=== PATIENT | male | born 1965 | race Two or more races ===

== ENCOUNTER 2019-12-14 16:14 | Inpatient (IN) | payer OTHER ==
[2019-12-14 17:10] VITALS: BMI 18.4
--- NOTE | 2019-12-14 17:19 | BHS.RME ---
Substance Use & Tx History - Substance Use History Alcohol Substance amount: 4-6 pints of whiskey Frequency of use: Daily Substance route: Oral Date of Last Use: 12/14/19 (this morning) Nicotine Substance amount: 20 cigarettes Frequency of use: Daily Substance route: Smoking Date of Last Use: 12/14/19 (the afternoon) - Last Treatment Date of last treatment: 06/2019 Treatment type: Medical Where was last treatment: Detox (New to [facility]; seen at [facility] (completed 4-5 day detox for alc) in June) Physical/Psych/Mental Status - Behavior General Behavior: Increased activity (restlessness, agitation) Eye Contact: Normal - Cooperativeness Cooperativeness: Cooperative - Thinking Thought Processes: Logical, Goal Directed Thought content: Future oriented - Physical Health Problems Is patient presently having any pain?: No Does patient presently have any injuries (include location): No Does patient currently have a fever: No Is patient : No CIWA Nausea/Vomitin-Mild Nausea/No Vomiting Muscle Tremors: 2 Anxiety: 3 Agitation: 2 Paroxysmal Sweats: 4-Forehead w/Sweat Beads Orientation: 0-Oriented Tacttile Disturbances: 0-None Auditory Disturbances: 0-None Visual Disturbances: 0-None Headache: 0-None Present CIWA-Ar Total Score: 12 Treatment Recommendation - Level of Care Level of Care: Acute Medical
--- NOTE | 2019-12-14 17:26 | HP ---
CIWA Score Nausea/Vomitin-Mild Nausea/No Vomiting Muscle Tremors: 2 Anxiety: 3 Agitation: 2 Paroxysmal Sweats: 4-Forehead w/Sweat Beads Orientation: 0-Oriented Tacttile Disturbances: 0-None Auditory Disturbances: 0-None Visual Disturbances: 0-None Headache: 0-None Present CIWA-Ar Total Score: 12 - Admission Criteria OASAS Guidelines: Admission for Medically Managed Detox: Requires at least one of the followin. CIWA greater than 12 2. Seizures within the past 24 hours 3. Delirium tremens within the past 24 hours 4. Hallucinations within the past 24 hours 5. Acute intervention needed for co occurring medical disorder 6. Acute intervention needed for co occurring psychiatric disorder 7. Severe withdrawal that cannot be handled at a lower level of care (continued vomiting, continued diarrhea, abnormal vital signs) requiring intravenous medication and/or fluids 8. Patient presents the following: CIWA greater than 12 Admission Criteria Met: Admission criteria met Admitting History and Physical - Admission Chief Complaint: Pt is a 54 yo M presenting for detox from alcohol; "starting to feel my withdrawal symptoms...I had to drink a little stop it before coming." History of Present Illness: Pt is a 54 yo M presenting for detox from alcohol; "starting to feel my withdrawal symptoms...I had to drink a little stop it before coming." Pt reports that he is new to [facility] but underwent alcohol detox in June at the [facility]. Pt reports 2 months of sobriety following detox in June after which he relapsed. Pt reports "the boredom with the stay at home order" was a trigger to start drinking again. Pt also reports he is in a Suboxone program @ [facility]. He was also prescribed valium for anxiety; last took valium 2 weeks ago. Pt denies any heroin, cocaine, or non-prescribed benzo use. He reports he has been feeling his withdrawal symptoms quicker these past several days. Pt meets criteria given extend of use and current intoxication. PMH - COPD (albuterol prn), peripheral neuropathy PSH - none Psych - none Soc/Domiciled -living alone in [facility] [place] Legal - none - Substance Use History Alcohol Substance amount: 4-6 pints of whiskey Frequency of use: Daily Substance route: Oral Date of Last Use: 12/14/19 (this morning) Nicotine Substance amount: 20 cigarettes Frequency of use: Daily Substance route: Smoking Date of Last Use: 12/14/19 (the afternoon) - Last Treatment Date of last treatment: 06/2019 Treatment type: Medical Where was last treatment: Detox (New to [facility]; seen at [facility] (completed 4-5 day detox for alc) in June) History Source: Patient Limitations to Obtaining History: No Limitations - Past Medical History Pulmonary: Yes: COPD Admission ROS [facility] - Ebola screening Have you traveled outside of the country in the last 21 days: No Have you been sick,other than usual withdrawal symptoms: No Do you have a fever: No - Review of Systems Constitutional: Chills, Diaphoresis, Unintentional Wgt. Loss (25 lb weight loss over the last several months because of alcohol use) EENT: reports: Blurred Vision (nearsighted with glasses) Respiratory: reports: No Symptoms reported Cardiac: reports: No Symptoms Reported GI: reports: Nausea (very mild) : reports: No Symptoms Reported Musculoskeletal: reports: No Symptoms Reported Integumentary: reports: No Symptoms Reported Neuro: reports: Tingling (chronic neuropathy in toes of b/l feet; was told likely 2/2 to chronic alcohol use) Endocrine: reports: No Symptoms Reported Hematology: reports: No Symptoms Reported Psychiatric: reports: Orientated x3, Agitated (mild), Anxious (mild) Patient History - Smoking Cessation Smoking history: Current every day smoker Have you smoked in the past 12 months: Yes Aproximately how many cigarettes per day: 20 Initiated information on smoking cessation: Yes 'Breaking Loose' booklet given: 12/14/19 Admission Physical Exam [facility] - Vital Signs Vital Signs: Vital Signs - 24 hr 12/14/19 17:07 Temperature 97.6 F Pulse Rate 76 Respiratory 18 Rate Blood Pressure 113/66 - Physical General Appearance: Yes: No Apparent Distress, Nourished, Appropriately Dressed, Tremorous (mild), Anxious (mild) HEENTM: Yes: EOMI, Hearing grossly Normal, Normocephalic, Normal Voice Respiratory: Yes: Lungs Clear, Normal Breath Sounds, No Respiratory Distress, No Accessory Muscle Use Neck: Yes: Supple, Trachea in good position Breast: Yes: Breast Exam Deferred Cardiology: Yes: Regular Rhythm, Regular Rate Abdominal: Yes: Normal Bowel Sounds, Non Tender, Flat, Soft Genitourinary: Yes: Other (deferred) Back: Yes: Normal Inspection Musculoskeletal: Yes: full range of Motion, Gait Steady Extremities: Yes: Normal Capillary Refill, Normal Inspection, Normal Range of Motion, Non-Tender, Tremors (felt not seen), Other (scab on howard of R leg from bumping his leg 2 weeks ago; no tenderness to palpation of bone and surrounding tissue) Neurological: Yes: Fully Oriented, Alert, Motor Strength 5/5, Normal Mood/Affect Integumentary: Yes: Normal Color, Dry, Warm - Diagnostic (1) Alcohol dependence Current Visit: Yes Status: Acute Qualifiers: Substance use status: in withdrawal Complication of substance-induced condition: uncomplicated Qualified Code(s): F10.230 - Alcohol dependence with withdrawal, uncomplicated (2) Nicotine dependence Current Visit: Yes Status: Acute Qualifiers: Nicotine product type: cigarettes Substance use status: uncomplicated Qualified Code(s): F17.210 - Nicotine dependence, cigarettes, uncomplicated (3) COPD (chronic obstructive pulmonary disease) Current Visit: Yes Status: Acute Qualifiers: COPD type: unspecified COPD Qualified Code(s): J44.9 - Chronic obstructive pulmonary disease, unspecified Cleared for Admission S - Detox or Rehab [facility] Level of Care: Medically Managed Detox Regimen/Protocol: Librium Breathalyzer - Breathalyzer Breathalyzer: 0.181 Urine Drug Screen - Test Device Lot number: [id number] Expiration date: 06/15/21 - Control Is test valid?: Yes - Results Drug screen NEGATIVE: No Urine drug screen results: BZO-Benzodiazepines, BUP-Suboxone Inpatient Rehab Admission - Rehab Decision to Admit Inpatient rehab admission?: No
[2019-12-14] MEDS ORDERED: MENTHOL/PHENOL 1 EACH UD MM PRN (17:52)
[2019-12-14] MEDS ORDERED: chlordiazePOXIDE HCL 25 MG CAPSULE PO PRN (17:52)
[2019-12-14] MEDS ORDERED: IBUPROFEN 400 MG TABLET (FP) PO PRN (17:52)
[2019-12-14] MEDS ORDERED: ONDANSETRON *ODT* 4 MG TABLET SL PRN (17:52)
[2019-12-14] MEDS ORDERED: MAGNESIUM HYDROX 2400MG/30ML ORAL SUSPENSION 30 ML CUP PO PRN (17:52)
[2019-12-14] MEDS ORDERED: MAGNESIUM CITRATE 300 ML BOTTLE PO PRN (17:52)
[2019-12-14] MEDS ORDERED: ACETAMINOPHEN 325 MG TABLET (FP) PO PRN ×2 (17:52)
[2019-12-14] MEDS ORDERED: BISMUTH SUBSALICYLATE 524 MG/30 ML UD PO PRN (17:52)
[2019-12-14] MEDS ORDERED: NICOTINE POLACRILEX 2 MG GUM BUC PRN (17:52)
[2019-12-14] MEDS ORDERED: MAG HYDROX/AL HYDROX/SIMETH 30 ML UNIT-DOSE CUP PO PRN (17:52)
--- OUTSIDE RECORDS SUMMARY | 2019-12-14 18:44 | XMS ---
:1965 Author Organization [facility] Name Relationship Address Phone UE Unavailable Unavailable Unavailable BRENNON SMITH SELF / SAME PATIENT [address] [place] [address] [place] [address] Re-disclosure Warning The records that you are about to access may contain information from federally- assisted alcohol or drug abuse programs. If such information is present, then the following federally mandated warning applies: This information has been disclosed to you from records protected by federal confidentiality rules (42 CFR part 2). The federal rules prohibit you from making any further disclosure of this information unless further disclosure is expressly permitted by the written consent of the person to whom it pertains or as otherwise permitted by 42 CFR part 2. A general authorization for the release of medical or other information is NOT sufficient for this purpose. The Federal rules restrict any use of the information to criminally investigate or prosecute any alcohol or drug abuse patient.The records that you are about to access may contain highly sensitive health information, the redisclosure of which is protected by Article 27-F of the [facility] Public Health law. If you continue you may haveaccess to information: Regarding HIV / AIDS; Provided by facilities licensed or operated by the [facility] Office of Mental Health; or Provided by the [facility] Office for People With Developmental Disabilities. If such information is present, then the following [facility] mandated warning applies: This information has been disclosed to you from confidential records which are protected by state law. State law prohibits you from making any further disclosure of this information without the specific written consent of the person to whom it pertains, or as otherwise permitted by law. Any unauthorized further disclosure in violation of state law may result in a fine or prison sentence or both. A general authorization for the release of medical or other information is NOT sufficient authorization for further disclosure. Insurance Providers Payer name Policy type Policy ID Covered Covered constitution party's Policy P kishor / Coverage constitution party ID relationship to [facility] ormation type pate HEALTH [id number]
[2019-12-14] MEDS: chlordiazePOXIDE HCL 25 MG CAPSULE PO SCH ×2 (19:05→22:25)
--- NOTE | 2019-12-14 19:20 | PN ---
Teaching Attending Note Name of Resident: Bhupendra Naik ATTENDING PHYSICIAN STATEMENT I saw and evaluated the patient. I reviewed the resident's note and discussed the case with the resident. I agree with the resident's findings and plan as documented. SUBJECTIVE: 54 y.o. male requesting detox from alcohol use , reports 4-6 pints of whiskey/ day PMHX : COPD OBJECTIVE: wnwd , intoxicated Vital Signs - 24 hr 12/14/19 17:07 Temperature 97.6 F Pulse Rate 76 Respiratory 18 Rate Blood Pressure 113/66 ASSESSMENT AND PLAN: AUD - librium detox
[2019-12-14] MEDS: hydrOXYzine PAMOATE 25 MG CAPSULE (FP) PO SCH ×2 (20:43→22:26)
[2019-12-14] MEDS: PRENATAL VITAMINS W/ FOLIC ACID TABLET (FP) PO SCH (20:45)
[2019-12-14] MEDS: NICOTINE 21 MG/24 HOURS TOPICAL PATCH TD SCH (20:45)
[2019-12-14] MEDS ORDERED: chlordiazePOXIDE HCL 25 MG CAPSULE ONE (22:01)
[2019-12-14] MEDS: THIAMINE HCL 100 MG TABLET (FP) PO SCH (22:26)
[2019-12-14] MEDS: MELATONIN 5 MG TABLETS PO SCH (22:26)
[2019-12-15] MEDS: chlordiazePOXIDE HCL 25 MG CAPSULE PO SCH ×4 (05:41→22:29)
[2019-12-15] MEDS: hydrOXYzine PAMOATE 25 MG CAPSULE (FP) PO SCH ×5 (05:42→22:29)
[2019-12-15] MEDS ORDERED: BUPRENORPHINE/NALOXONE 8 MG/2 MG FILM PACKET SL ONE (08:48)
--- NOTE | 2019-12-15 08:48 | EKG ---
Test Reason : Blood Pressure : / mmHG Vent. Rate : 058 BPM Atrial Rate : 058 BPM P-R Int : 144 ms QRS Dur : 106 ms QT Int : 428 ms P-R-T Axes : 083 023 017 degrees QTc Int : 420 ms SINUS BRADYCARDIA SEPTAL INFARCT , AGE UNDETERMINED ABNORMAL ECG NO PREVIOUS ECGS AVAILABLE Confirmed by Valdez Beth MD ([id number]) on 12/15/2019 8:47:06 AM Referred By: Confirmed By:Valdez Beth MD
[2019-12-15] MEDS: NICOTINE 21 MG/24 HOURS TOPICAL PATCH TD SCH (10:27)
[2019-12-15] MEDS: PRENATAL VITAMINS W/ FOLIC ACID TABLET (FP) PO SCH (10:27)
[2019-12-15] MEDS: METHOCARBAMOL 500 MG TABLET PO PRN ×2 (10:28→22:28)
[2019-12-15 10:49] LABS: HEMATOCRIT 37.3 % (35.4-49); HEMOGLOBIN 12.4 GM/dL (11.7-16.9); MCH 35.9 pg (25.7-33.7); MCHC 33.3 g/dl (32.0-35.9); MEAN CELL VOLUME 107.8 fl (80-96); PLATELET COUNT 104 K/MM3 (134-434); RBC 3.46 M/mm3 (4.00-5.60); RDW 15.8 % (11.9-15.9); WHITE BLOOD COUNT 3.9 K/mm3 (4.0-10.0)
--- NOTE | 2019-12-15 10:53 | PN ---
[facility] CIWA - CIWA Score Nausea/Vomitin-Mild Nausea/No Vomiting Muscle Tremors: 2 Anxiety: 3 Agitation: 3 Paroxysmal Sweats: 1-Minimal Palms Moist Orientation: 0-Oriented Tacttile Disturbances: 1-Very Mild Itch/Numbness Auditory Disturbances: 0-None Visual Disturbances: 0-None Headache: 2-Mild CIWA-Ar Total Score: 13 S Progress Note (SOAP) Subjective: alert,irritable,anxious,interrupted sleep,tremor,aching pain,nausea Objective: 12/15/19 16:21 Vital Signs Temperature 98.0 F 12/15/19 12:59 Pulse Rate 75 12/15/19 12:59 Respiratory Rate 18 12/15/19 12:59 Blood Pressure 130/82 12/15/19 12:59 O2 Sat by Pulse Oximetry (%) 100 12/15/19 12:59 Laboratory Last Values WBC 3.9 K/mm3 (4.0-10.0) L 12/14/19 07:00 RBC 3.46 M/mm3 (4.00-5.60) L 12/14/19 07:00 Hgb 12.4 GM/dL (11.7-16.9) 12/14/19 07:00 Hct 37.3 % (35.4-49) 12/14/19 07:00 MCV 107.8 fl (80-96) H 12/14/19 07:00 MCH 35.9 pg (25.7-33.7) H 12/14/19 07:00 MCHC 33.3 g/dl (32.0-35.9) 12/14/19 07:00 RDW 15.8 % (11.9-15.9) 12/14/19 07:00 Plt Count 104 K/MM3 (134-434) L 12/14/19 07:00 MPV 10.0 fl (7.5-11.1) 12/14/19 07:00 Sodium 136 mmol/L (136-145) 12/14/19 07:00 Potassium 3.1 mmol/L (3.5-5.1) L 12/14/19 07:00 Chloride 95 mmol/L (98-107) L 12/14/19 07:00 Carbon Dioxide 38 mmol/L (21-32) H 12/14/19 07:00 Anion Gap 4 MMOL/L (8-16) L 12/14/19 07:00 BUN 10.0 mg/dL (7-18) 12/14/19 07:00 Creatinine 0.4 mg/dL (0.55-1.3) L 12/14/19 07:00 Est GFR (CKD-EPI)AfAm 154.97 12/14/19 07:00 Est GFR (CKD-EPI)NonAf 133.71 12/14/19 07:00 Random Glucose 74 mg/dL (74-106) 12/14/19 07:00 Calcium 8.8 mg/dL (8.5-10.1) 12/14/19 07:00 Total Bilirubin 1.0 mg/dL (0.2-1) 12/14/19 07:00 AST 67 U/L (15-37) H 12/14/19 07:00 ALT 24 U/L (13-61) 12/14/19 07:00 Alkaline Phosphatase 68 U/L (45-117) 12/14/19 07:00 Total Protein 5.8 g/dl (6.4-8.2) L 12/14/19 07:00 Albumin 3.2 g/dl (3.4-5.0) L 12/14/19 07:00 Syphilis Serology Non-reactive (NONREACTIVE) 12/14/19 07:00 Assessment: 12/15/19 16:22 withdrawal symptom Plan: continue detox librium regimen patient is on suboxone 8mgs/2mgs sl film tid last filled on 11/18/19 90 film on 11/18/19 ordered, encourage oral fluid, wbc is 3,900 leukopenia probably due to chronic alcoholism
[2019-12-15 11:40] LABS: ALBUMIN 3.2 g/dl (3.4-5.0); CALCIUM 8.8 mg/dL (8.5-10.1); CREATININE 0.4 mg/dL (0.55-1.3); POTASSIUM 3.1 mmol/L (3.5-5.1); TOT PROT 5.8 g/dl (6.4-8.2)
[2019-12-15] MEDS: BUPRENORPHINE/NALOXONE 8 MG/2 MG FILM PACKET SL SCH ×2 (13:35→22:27)
[2019-12-15] MEDS: MELATONIN 5 MG TABLETS PO SCH (22:27)
[2019-12-15] MEDS: THIAMINE HCL 100 MG TABLET (FP) PO SCH (22:29)
[2019-12-16] MEDS: chlordiazePOXIDE HCL 25 MG CAPSULE PO SCH ×4 (07:03→22:31)
[2019-12-16] MEDS: hydrOXYzine PAMOATE 25 MG CAPSULE (FP) PO SCH ×5 (07:03→22:31)
[2019-12-16] MEDS: BUPRENORPHINE/NALOXONE 8 MG/2 MG FILM PACKET SL SCH ×3 (07:04→22:42)
[2019-12-16] MEDS: NICOTINE 21 MG/24 HOURS TOPICAL PATCH TD SCH (10:15)
[2019-12-16] MEDS: PRENATAL VITAMINS W/ FOLIC ACID TABLET (FP) PO SCH (10:15)
--- NOTE | 2019-12-16 13:39 | PN ---
S CIWA - CIWA Score Nausea/Vomitin Muscle Tremors: 2 Anxiety: 2 Agitation: 2 Paroxysmal Sweats: 1-Minimal Palms Moist Orientation: 0-Oriented Tacttile Disturbances: 1-Very Mild Itch/Numbness Auditory Disturbances: 0-None Visual Disturbances: 0-None Headache: 2-Mild CIWA-Ar Total Score: 12 BHS Progress Note (SOAP) Subjective: alert,irritable,anxious,interrupted sleep,aching pain,nausea,ambulation on the unit Objective: 12/16/19 17:09 Vital Signs Temperature 97.1 F L 12/16/19 12:40 Pulse Rate 76 12/16/19 12:40 Respiratory Rate 18 12/16/19 12:40 Blood Pressure 117/69 12/16/19 12:40 O2 Sat by Pulse Oximetry (%) 100 12/16/19 12:40 Laboratory Last Values WBC 3.9 K/mm3 (4.0-10.0) L 12/14/19 07:00 RBC 3.46 M/mm3 (4.00-5.60) L 12/14/19 07:00 Hgb 12.4 GM/dL (11.7-16.9) 12/14/19 07:00 Hct 37.3 % (35.4-49) 12/14/19 07:00 MCV 107.8 fl (80-96) H 12/14/19 07:00 MCH 35.9 pg (25.7-33.7) H 12/14/19 07:00 MCHC 33.3 g/dl (32.0-35.9) 12/14/19 07:00 RDW 15.8 % (11.9-15.9) 12/14/19 07:00 Plt Count 104 K/MM3 (134-434) L 12/14/19 07:00 MPV 10.0 fl (7.5-11.1) 12/14/19 07:00 Sodium 136 mmol/L (136-145) 12/14/19 07:00 Potassium 3.1 mmol/L (3.5-5.1) L 12/14/19 07:00 Chloride 95 mmol/L (98-107) L 12/14/19 07:00 Carbon Dioxide 38 mmol/L (21-32) H 12/14/19 07:00 Anion Gap 4 MMOL/L (8-16) L 12/14/19 07:00 BUN 10.0 mg/dL (7-18) 12/14/19 07:00 Creatinine 0.4 mg/dL (0.55-1.3) L 12/14/19 07:00 Est GFR (CKD-EPI)AfAm 154.97 12/14/19 07:00 Est GFR (CKD-EPI)NonAf 133.71 12/14/19 07:00 Random Glucose 74 mg/dL (74-106) 12/14/19 07:00 Calcium 8.8 mg/dL (8.5-10.1) 12/14/19 07:00 Total Bilirubin 1.0 mg/dL (0.2-1) 12/14/19 07:00 AST 67 U/L (15-37) H 12/14/19 07:00 ALT 24 U/L (13-61) 12/14/19 07:00 Alkaline Phosphatase 68 U/L (45-117) 12/14/19 07:00 Total Protein 5.8 g/dl (6.4-8.2) L 12/14/19 07:00 Albumin 3.2 g/dl (3.4-5.0) L 12/14/19 07:00 Syphilis Serology Non-reactive (NONREACTIVE) 12/14/19 07:00 COVID-19 (JOSSELYN) Not detected (Not Detected) 12/14/19 18:45 Assessment: 12/16/19 17:10 withdrawal symptom Plan: continue detox librium regimen,hypokalemia k is 3.1,kdur 20 meq po now then bid, for 3 days,repeat k in am, continue suboxone 8mgs/2mgs sl film tid,close monitoring
[2019-12-16] MEDS ORDERED: POTASSIUM CHLORIDE TABS 20 MEQ TABLET.ER (FP) PO ONE (14:52)
[2019-12-16] MEDS: METHOCARBAMOL 500 MG TABLET PO PRN (22:31)
[2019-12-16] MEDS: THIAMINE HCL 100 MG TABLET (FP) PO SCH (22:31)
[2019-12-16] MEDS: MELATONIN 5 MG TABLETS PO SCH (22:31)
[2019-12-16] MEDS: POTASSIUM CHLORIDE TABS 20 MEQ TABLET.ER (FP) PO SCH (22:31)
[2019-12-16] MEDS: ALBUTEROL SO4 HFA INHALER IH PRN (22:32)
[2019-12-17] MEDS ORDERED: chlordiazePOXIDE HCL 10 MG CAPSULE PO PRN
[2019-12-17] MEDS: hydrOXYzine PAMOATE 25 MG CAPSULE (FP) PO SCH ×5 (05:25→22:00)
[2019-12-17] MEDS: chlordiazePOXIDE HCL 10 MG CAPSULE PO SCH ×4 (05:25→22:00)
[2019-12-17] MEDS: BUPRENORPHINE/NALOXONE 8 MG/2 MG FILM PACKET SL SCH ×3 (05:25→22:01)
--- NOTE | 2019-12-17 10:15 | PN ---
[facility] CIWA - CIWA Score Nausea/Vomitin-No Nausea/No Vomiting Muscle Tremors: None Anxiety: 1-Mildly Anxious Agitation: 0-Normal Activity Paroxysmal Sweats: No Perspiration Orientation: 0-Oriented Tacttile Disturbances: 0-None Auditory Disturbances: 0-None Visual Disturbances: 0-None Headache: 0-None Present CIWA-Ar Total Score: 1 BHS Progress Note (SOAP) Subjective: Feeling well Objective: 12/17/19 10:13 PE Gnl: WDWN, in no distress Mentation: normal Motor: moves limbs well Coordination: nl Gait: steady Laboratory Tests 12/14/19 12/14/19 12/14/19 07:00 07:00 07:00 WBC 3.9 L RBC 3.46 L Hgb 12.4 Hct 37.3 MCV 107.8 H MCH 35.9 H MCHC 33.3 RDW 15.8 Plt Count 104 L MPV 10.0 Sodium 136 Potassium 3.1 L Chloride 95 L Carbon Dioxide 38 H Anion Gap 4 L BUN 10.0 Creatinine 0.4 L Est GFR (CKD-EPI)AfAm 154.97 Est GFR (CKD-EPI)NonAf 133.71 Random Glucose 74 Calcium 8.8 Total Bilirubin 1.0 AST 67 H ALT 24 Alkaline Phosphatase 68 Total Protein 5.8 L Albumin 3.2 L Syphilis Serology Non-reactive COVID-19 (JOSSELYN) 12/14/19 18:45 WBC RBC Hgb Hct MCV MCH MCHC RDW Plt Count MPV Sodium Potassium Chloride Carbon Dioxide Anion Gap BUN Creatinine Est GFR (CKD-EPI)AfAm Est GFR (CKD-EPI)NonAf Random Glucose Calcium Total Bilirubin AST ALT Alkaline Phosphatase Total Protein Albumin Syphilis Serology COVID-19 (JOSSELYN) Not detected Home Medication List Medication Instructions Recorded Confirmed Type Albuterol Sulfate Inhaler - 2 inh PO Q6H PRN 12/14/19 12/14/19 History [Ventolin Hfa Inhaler -] Buprenorphine/Naloxone [Suboxone 1 each SL TID 12/14/19 12/14/19 History 8Mg/2Mg Sl Film -] Loratadine [Allergy Relief] 10 mg PO DAILY 12/14/19 12/14/19 History Active Medications Generic Name Dose Route Start Last Admin Trade Name Freq PRN Reason Stop Dose Admin Acetaminophen 650 mg 12/14/19 17:52 Tylenol - PO Q6H PRN PAIN LEVEL 4 - 6 Acetaminophen 650 mg 12/14/19 17:52 Tylenol - PO Q6H PRN FEVER Al Hydroxide/Mg Hydroxide 30 ml 12/14/19 17:52 12/15/19 20:00 Mylanta Oral Suspension - PO 30 ml Q6H PRN Administration DYSPEPSIA Albuterol Sulfate 2 puff 12/14/19 17:55 12/16/19 22:32 Ventolin Hfa Inhaler - IH 2 puff Q4H PRN Administration SHORT OF BREATH/WHEEZING Bismuth Subsalicylate 524 mg 12/14/19 17:52 Pepto-Bismol - PO Q1H PRN DIARRHEA Buprenorphine/Naloxone 1 each 12/15/19 14:00 12/17/19 05:25 Suboxone 8 Mg/2 Mg Film Packet SL 12/22/19 13:59 1 each TID CHAYO Administration Chlordiazepoxide HCl 10 mg 12/17/19 05:00 12/17/19 05:25 Librium - PO 12/17/19 23:01 10 mg [id number] CHAYO Administration Chlordiazepoxide HCl 10 mg 12/18/19 05:00 Librium - PO 12/18/19 17:01 Q12H CHAYO Chlordiazepoxide HCl 10 mg 12/17/19 00:00 Librium - PO 12/18/19 00:00 Q4H PRN WITHDRAWAL(CONT SUBST) Chlordiazepoxide HCl 10 mg 12/19/19 05:00 Librium - PO 12/19/19 05:01 ONCE@0500 ONE Eucalyptus/Menthol/Phenol/Sorbitol 1 each 12/14/19 17:52 Cepastat Lozenge - MM 12/20/19 17:53 Q4H PRN SORE THROAT Hydroxyzine Pamoate 25 mg 12/14/19 18:00 12/17/19 05:25 Vistaril - PO 12/20/19 17:53 25 mg Q4HWA CHAYO Administration Ibuprofen 400 mg 12/14/19 17:52 12/15/19 22:28 Motrin - PO 400 mg Q6H PRN Administration PAIN LEVEL 1 - 3 Magnesium Citrate 300 ml 12/14/19 17:52 Citroma - PO Q48H PRN CONSTIPATION Magnesium Hydroxide 30 ml 12/14/19 17:52 Milk Of Magnesia - PO PRN PRN CONSTIPATION Melatonin 5 mg 12/14/19 22:00 12/16/19 22:31 Melatonin PO 5 mg HS CHAYO Administration Methocarbamol 500 mg 12/14/19 17:52 12/16/19 22:31 Robaxin - PO 12/20/19 17:53 500 mg Q6H PRN Administration MUSCLE SPASMS Nicotine 21 mg 12/14/19 18:45 12/16/19 10:15 Nicoderm Patch - TD 21 mg DAILY CHAYO Administration Nicotine Polacrilex 2 mg 12/14/19 17:52 Nicorette Gum - BUC Q2H PRN NICOTINE REPLACEMENT RX Ondansetron HCl 4 mg 12/14/19 17:52 Zofran Odt - SL Q8H PRN Nausea/Vomiting Potassium Chloride 20 meq 12/16/19 22:00 12/16/19 22:31 K-Dur - PO 12/18/19 23:59 20 meq BID CHAYO Administration Multivit/Folic Acid/Iron 1 tab 12/14/19 18:45 12/16/19 10:15 Vitamins (Sjr) - PO 1 tab DAILY CHAYO Administration Thiamine HCl 100 mg 12/14/19 22:00 12/16/19 22:31 Vitamin B1 - PO 100 mg HS CHAYO Administration Vital Signs Temperature 98.2 F 12/17/19 09:07 Pulse Rate 65 12/17/19 09:07 Respiratory Rate 18 12/17/19 09:07 Blood Pressure 109/64 12/17/19 09:07 O2 Sat by Pulse Oximetry (%) 99 12/17/19 06:46 Assessment: 12/17/19 10:14 1. Alcohol withdrawal 2. Hypokalemia Plan: 1. Librium protocol, projected completion on 12/18 2. Repeat K pending
[2019-12-17] MEDS: NICOTINE 21 MG/24 HOURS TOPICAL PATCH TD SCH (10:21)
[2019-12-17] MEDS: POTASSIUM CHLORIDE TABS 20 MEQ TABLET.ER (FP) PO SCH ×2 (10:21→22:00)
[2019-12-17] MEDS: PRENATAL VITAMINS W/ FOLIC ACID TABLET (FP) PO SCH (10:21)
[2019-12-17] MEDS: ALBUTEROL SO4 HFA INHALER IH PRN (17:44)
[2019-12-17] MEDS: MELATONIN 5 MG TABLETS PO SCH (22:00)
[2019-12-17] MEDS: THIAMINE HCL 100 MG TABLET (FP) PO SCH (22:00)
[2019-12-18] MEDS ORDERED: chlordiazePOXIDE HCL 10 MG CAPSULE PO SCH (05:00)
[2019-12-18] MEDS: BUPRENORPHINE/NALOXONE 8 MG/2 MG FILM PACKET SL SCH ×2 (05:40→13:12)
[2019-12-18] MEDS: hydrOXYzine PAMOATE 25 MG CAPSULE (FP) PO SCH ×3 (05:40→13:12)
[2019-12-18 09:56] VITALS: BP 127/75; PULSE 65; TEMP 97.9
[2019-12-18] MEDS: PRENATAL VITAMINS W/ FOLIC ACID TABLET (FP) PO SCH (11:05)
[2019-12-18] MEDS: NICOTINE 21 MG/24 HOURS TOPICAL PATCH TD SCH (11:05)
[2019-12-18] MEDS: POTASSIUM CHLORIDE TABS 20 MEQ TABLET.ER (FP) PO SCH (11:05)
--- NOTE | 2019-12-18 11:59 | DS ---
[facility] Detox Discharge Summary Admission Date: 12/14/19 Discharge Date: 12/18/19 - History Present History: Alcohol Dependence Additional Comments: Pt is medically cleared and discharged today. Pt completed the detox protocol. pt is encouraged to follow-up with an outpatient CD program and also to follow- up with his pmd which he verbalized understanding. Pt is AOX3, in no acute respiratory distress, Full ROM, and ambulatory. Pertinent Past History: h/o alcohol use disorder. - Physical Exam Results Vital Signs: Vital Signs Temperature 97.9 F 12/18/19 09:04 Pulse Rate 65 12/18/19 09:04 Respiratory Rate 20 12/18/19 09:04 Blood Pressure 127/75 12/18/19 09:04 O2 Sat by Pulse Oximetry (%) 97 12/18/19 05:26 Vital Signs 12/18/19 12/18/19 05:26 09:04 Temperature 98.2 F 97.9 F Pulse Rate 91 H 65 Respiratory 18 20 Rate Blood Pressure 137/91 127/75 O2 Sat by Pulse 97 Oximetry (%) Laboratory Last Values WBC 3.9 K/mm3 (4.0-10.0) L 12/14/19 07:00 RBC 3.46 M/mm3 (4.00-5.60) L 12/14/19 07:00 Hgb 12.4 GM/dL (11.7-16.9) 12/14/19 07:00 Hct 37.3 % (35.4-49) 12/14/19 07:00 MCV 107.8 fl (80-96) H 12/14/19 07:00 MCH 35.9 pg (25.7-33.7) H 12/14/19 07:00 MCHC 33.3 g/dl (32.0-35.9) 12/14/19 07:00 RDW 15.8 % (11.9-15.9) 12/14/19 07:00 Plt Count 104 K/MM3 (134-434) L 12/14/19 07:00 MPV 10.0 fl (7.5-11.1) 12/14/19 07:00 Sodium 136 mmol/L (136-145) 12/14/19 07:00 Potassium 4.2 mmol/L (3.5-5.1) 12/17/19 06:50 Chloride 95 mmol/L (98-107) L 12/14/19 07:00 Carbon Dioxide 38 mmol/L (21-32) H 12/14/19 07:00 Anion Gap 4 MMOL/L (8-16) L 12/14/19 07:00 BUN 10.0 mg/dL (7-18) 12/14/19 07:00 Creatinine 0.4 mg/dL (0.55-1.3) L 12/14/19 07:00 Est GFR (CKD-EPI)AfAm 154.97 12/14/19 07:00 Est GFR (CKD-EPI)NonAf 133.71 12/14/19 07:00 Random Glucose 74 mg/dL (74-106) 12/14/19 07:00 Calcium 8.8 mg/dL (8.5-10.1) 12/14/19 07:00 Total Bilirubin 1.0 mg/dL (0.2-1) 12/14/19 07:00 AST 67 U/L (15-37) H 12/14/19 07:00 ALT 24 U/L (13-61) 12/14/19 07:00 Alkaline Phosphatase 68 U/L (45-117) 12/14/19 07:00 Total Protein 5.8 g/dl (6.4-8.2) L 12/14/19 07:00 Albumin 3.2 g/dl (3.4-5.0) L 12/14/19 07:00 Syphilis Serology Non-reactive (NONREACTIVE) 12/14/19 07:00 COVID-19 (JOSSELYN) Not detected (Not Detected) 12/14/19 18:45 Labs noted. Pertinent Admission Physical Exam Findings: withdrawal symptoms. - Treatment Hospital Course: Detox Protocol Followed, Detoxed Safely, Responded well, Discharged Condition Good - Medication Discharge Medications: Ambulatory Orders Albuterol Sulfate Inhaler - [Ventolin Hfa Inhaler -] 2 inh PO Q6H PRN 12/14/19 Buprenorphine/Naloxone [Suboxone 8Mg/2Mg Sl Film -] 1 each SL TID 12/14/19 Loratadine [Allergy Relief] 10 mg PO DAILY 12/14/19 - Diagnosis (1) Alcohol dependence Status: Acute Qualifiers: Substance use status: in withdrawal Complication of substance-induced condition: uncomplicated Qualified Code(s): F10.230 - Alcohol dependence with withdrawal, uncomplicated (2) COPD (chronic obstructive pulmonary disease) Status: Chronic Qualifiers: COPD type: unspecified COPD Qualified Code(s): J44.9 - Chronic obstructive pulmonary disease, unspecified (3) Nicotine dependence Status: Chronic Qualifiers: Nicotine product type: cigarettes Substance use status: uncomplicated Qualified Code(s): F17.210 - Nicotine dependence, cigarettes, uncomplicated - AMA Did Patient Leave Against Medical Advice: No
[2019-12-19] MEDS ORDERED: chlordiazePOXIDE HCL 10 MG CAPSULE PO ONE (05:00)
== END 2019-12-18 09:21 | disposition home or self-care (01) | DRG 775 ==
LOC: YASAS 16:14 → Y3N 18:26
PROVIDERS: ADMIT Allergy & Immunology; ATTEND Allergy & Immunology
PROC: HZ2ZZZZ Detoxification Services for Substance Abuse Treatment (ICD-10-PCS; principal; 2019-12-14)
DX: F10.230 Alcohol dependence with withdrawal, uncomplicated (principal); F17.210 Nicotine dependence, cigarettes, uncomplicated; E87.6 Hypokalemia; J44.9 Chronic obstructive pulmonary disease, unspecified; D72.819 Decreased white blood cell count, unspecified; G62.9 Polyneuropathy, unspecified; R63.4 Abnormal weight loss; Z68.1 Body mass index [BMI] 19.9 or less, adult
CPT/HCPCS: 36415; 80053; 84132; 85027; 86780; 93005; 93010; C9803; U0003

== ENCOUNTER 2020-01-28 10:36 | Inpatient (IN) | payer OTHER ==
[2020-01-28 11:45] VITALS: BMI 17.4
[2020-01-28] MEDS ORDERED: MAGNESIUM HYDROX 2400MG/30ML ORAL SUSPENSION 30 ML CUP PO PRN (12:07)
[2020-01-28] MEDS ORDERED: chlordiazePOXIDE HCL 25 MG CAPSULE PO PRN (12:07)
[2020-01-28] MEDS ORDERED: ONDANSETRON *ODT* 4 MG TABLET SL PRN (12:07)
[2020-01-28] MEDS ORDERED: NICOTINE POLACRILEX 2 MG GUM BUC PRN (12:07)
[2020-01-28] MEDS ORDERED: IBUPROFEN 400 MG TABLET (FP) PO PRN (12:07)
[2020-01-28] MEDS ORDERED: ACETAMINOPHEN 325 MG TABLET (FP) PO PRN ×2 (12:07)
[2020-01-28] MEDS ORDERED: METHOCARBAMOL 500 MG TABLET PO PRN (12:07)
[2020-01-28] MEDS ORDERED: MENTHOL/PHENOL 1 EACH UD MM PRN (12:07)
[2020-01-28] MEDS ORDERED: BISMUTH SUBSALICYLATE 262 MG/15 ML BTL PO PRN (12:07)
[2020-01-28] MEDS ORDERED: MAGNESIUM CITRATE 300 ML BOTTLE PO PRN (12:07)
[2020-01-28] MEDS ORDERED: MAG HYDROX/AL HYDROX/SIMETH 30 ML UNIT-DOSE CUP PO PRN (12:07)
[2020-01-28] MEDS: BUPRENORPHINE/NALOXONE 8 MG/2 MG FILM PACKET SL SCH ×2 (13:48→22:12)
[2020-01-28] MEDS: hydrOXYzine PAMOATE 25 MG CAPSULE (FP) PO SCH ×3 (13:49→22:13)
[2020-01-28] MEDS: NICOTINE 14 MG/24 HOURS TOPICAL PATCH TD SCH (13:49)
[2020-01-28 14:30] LABS: POTASSIUM 3.4 mmol/L (3.5-5.1)
[2020-01-28 14:33] LABS: HEMATOCRIT 42.1 % (35.4-49); MCH 36.1 pg (25.7-33.7); MCHC 33.2 g/dl (32.0-35.9); MEAN CELL VOLUME 108.7 fl (80-96); MEAN PLT VOLUME 9.8 fl (7.5-11.1); PLATELET COUNT 94 K/MM3 (134-434); RBC 3.87 M/mm3 (4.00-5.60); RDW 14.3 % (11.9-15.9); WHITE BLOOD COUNT 3.8 K/mm3 (4.0-10.0)
[2020-01-28 14:36] LABS: ALBUMIN 4.2 g/dl (3.4-5.0); BLOOD UREA NITROGEN 10.4 mg/dL (7-18); CALCIUM 8.3 mg/dL (8.5-10.1)
[2020-01-28 14:40] LABS: CREATININE 0.6 mg/dL (0.55-1.3)
[2020-01-28 14:41] LABS: BILIRUBIN,TOTAL 0.7 mg/dL (0.2-1); TOT PROT 7.3 g/dl (6.4-8.2)
[2020-01-28] MEDS: chlordiazePOXIDE HCL 25 MG CAPSULE PO SCH ×2 (17:28→22:12)
[2020-01-28] MEDS: THIAMINE HCL 100 MG TABLET (FP) PO SCH (22:12)
[2020-01-28] MEDS: MELATONIN 5 MG TABLETS PO SCH (22:13)
[2020-01-29] MEDS: BUPRENORPHINE/NALOXONE 8 MG/2 MG FILM PACKET SL SCH ×3 (05:16→21:14)
[2020-01-29] MEDS: ALBUTEROL SO4 HFA INHALER IH PRN ×2 (05:16→20:03)
[2020-01-29] MEDS: chlordiazePOXIDE HCL 25 MG CAPSULE PO SCH ×2 (05:16→10:12)
[2020-01-29] MEDS: hydrOXYzine PAMOATE 25 MG CAPSULE (FP) PO SCH ×5 (05:16→21:14)
[2020-01-29] MEDS: LORATADINE 10 MG TABLET PO SCH (10:12)
[2020-01-29] MEDS: NICOTINE 14 MG/24 HOURS TOPICAL PATCH TD SCH (10:13)
[2020-01-29] MEDS: PRENATAL VITAMINS W/ FOLIC ACID TABLET (FP) PO SCH (10:14)
[2020-01-29] MEDS ORDERED: POTASSIUM CHLORIDE TABS 20 MEQ TABLET.ER (FP) PO ONE (11:25)
[2020-01-29] MEDS ORDERED: LORazepam 1 MG TABLET PO PRN (11:27)
[2020-01-29] MEDS ORDERED: LORazepam 2 MG TABLET PO PRN (17:00)
[2020-01-29] MEDS: MELATONIN 5 MG TABLETS PO SCH (21:14)
[2020-01-29] MEDS: THIAMINE HCL 100 MG TABLET (FP) PO SCH (21:14)
[2020-01-30] MEDS ORDERED: chlordiazePOXIDE HCL 25 MG CAPSULE PO SCH (05:00)
[2020-01-30] MEDS: LORazepam 1 MG TABLET PO SCH ×4 (06:20→22:04)
[2020-01-30] MEDS: BUPRENORPHINE/NALOXONE 8 MG/2 MG FILM PACKET SL SCH ×3 (06:20→22:04)
[2020-01-30] MEDS: hydrOXYzine PAMOATE 25 MG CAPSULE (FP) PO SCH ×5 (06:21→22:04)
[2020-01-30] MEDS: NICOTINE 14 MG/24 HOURS TOPICAL PATCH TD SCH (10:21)
[2020-01-30] MEDS: PRENATAL VITAMINS W/ FOLIC ACID TABLET (FP) PO SCH (10:21)
[2020-01-30] MEDS: LORATADINE 10 MG TABLET PO SCH (10:21)
[2020-01-30] MEDS: THIAMINE HCL 100 MG TABLET (FP) PO SCH (22:04)
[2020-01-30] MEDS: MELATONIN 5 MG TABLETS PO SCH (22:04)
[2020-01-31] MEDS ORDERED: chlordiazePOXIDE HCL 10 MG CAPSULE PO PRN
[2020-01-31] MEDS ORDERED: LORazepam 0.5 MG TABLET PO SCH (05:00)
[2020-01-31] MEDS ORDERED: chlordiazePOXIDE HCL 10 MG CAPSULE PO SCH (05:00)
[2020-01-31] MEDS: hydrOXYzine PAMOATE 25 MG CAPSULE (FP) PO SCH (05:03)
[2020-01-31] MEDS: BUPRENORPHINE/NALOXONE 8 MG/2 MG FILM PACKET SL SCH (05:03)
[2020-01-31] MEDS ORDERED: LORATADINE 10 MG TABLET PO SCH (07:00)
[2020-01-31 07:55] VITALS: PULSE 91
[2020-01-31 08:52] VITALS: BP 104/69; TEMP 97.2
[2020-02-01] MEDS ORDERED: LORazepam 0.5 MG TABLET PO PRN
[2020-02-01] MEDS ORDERED: LORazepam 0.5 MG TABLET PO ONE (05:00)
[2020-02-01] MEDS ORDERED: chlordiazePOXIDE HCL 10 MG CAPSULE PO SCH (05:00)
[2020-02-02] MEDS ORDERED: chlordiazePOXIDE HCL 10 MG CAPSULE PO ONE (05:00)
== END 2020-01-31 09:12 | disposition home or self-care (01) | DRG 775 ==
LOC: YASAS 10:36 → Y3N 12:30
PROVIDERS: ADMIT Allergy & Immunology; ATTEND Allergy & Immunology
PROC: HZ2ZZZZ Detoxification Services for Substance Abuse Treatment (ICD-10-PCS; principal; 2020-01-28)
DX: F10.230 Alcohol dependence with withdrawal, uncomplicated (principal); F17.213 Nicotine dependence, cigarettes, with withdrawal; F19.24 Other psychoactive substance dependence with psychoactive substance-induced mood disorder; F41.9 Anxiety disorder, unspecified; G62.1 Alcoholic polyneuropathy; E87.6 Hypokalemia; R74.01 Elevation of levels of liver transaminase levels; J30.2 Other seasonal allergic rhinitis; L84 Corns and callosities; R63.4 Abnormal weight loss; Z68.1 Body mass index [BMI] 19.9 or less, adult
CPT/HCPCS: 36415; 80053; 84132; 84450; 85027; 86780; C9803; U0003

== ENCOUNTER 2020-02-23 11:08 | Inpatient (IN) | payer OTHER ==
[2020-02-23 12:21] VITALS: BMI 17.9
[2020-02-23] MEDS ORDERED: MENTHOL/PHENOL 1 EACH UD MM PRN (12:52)
[2020-02-23] MEDS ORDERED: NICOTINE POLACRILEX 2 MG GUM BUC PRN (12:52)
[2020-02-23] MEDS ORDERED: ACETAMINOPHEN 325 MG TABLET (FP) PO PRN ×2 (12:52)
[2020-02-23] MEDS ORDERED: BISMUTH SUBSALICYLATE 524 MG/30 ML UD PO PRN (12:52)
[2020-02-23] MEDS ORDERED: METHOCARBAMOL 500 MG TABLET PO PRN (12:52)
[2020-02-23] MEDS ORDERED: MAGNESIUM CITRATE 300 ML BOTTLE PO PRN (12:52)
[2020-02-23] MEDS ORDERED: MAGNESIUM HYDROX 2400MG/30ML ORAL SUSPENSION 30 ML CUP PO PRN (12:52)
[2020-02-23] MEDS ORDERED: IBUPROFEN 400 MG TABLET (FP) PO PRN (12:52)
[2020-02-23] MEDS ORDERED: MAG HYDROX/AL HYDROX/SIMETH 30 ML UNIT-DOSE CUP PO PRN (12:52)
[2020-02-23] MEDS ORDERED: ONDANSETRON *ODT* 4 MG TABLET SL PRN (12:52)
[2020-02-23] MEDS ORDERED: ALBUTEROL SO4 HFA INHALER IH PRN ×2 (12:58→23:06)
[2020-02-23] MEDS: PRENATAL VITAMINS W/ FOLIC ACID TABLET (FP) PO SCH (13:56)
[2020-02-23] MEDS: chlordiazePOXIDE HCL 25 MG CAPSULE PO SCH ×3 (13:56→22:26)
[2020-02-23] MEDS: BUPRENORPHINE/NALOXONE 8 MG/2 MG FILM PACKET SL SCH ×2 (13:57→22:27)
[2020-02-23] MEDS: hydrOXYzine PAMOATE 25 MG CAPSULE (FP) PO SCH ×3 (13:57→22:30)
[2020-02-23 17:10] LABS: POTASSIUM 3.7 mmol/L (3.5-5.1)
[2020-02-23 17:13] LABS: ALBUMIN 4.1 g/dl (3.4-5.0); BLOOD UREA NITROGEN 8.1 mg/dL (7-18); CALCIUM 8.5 mg/dL (8.5-10.1); HEMATOCRIT 42.5 % (35.4-49); HEMOGLOBIN 14.1 GM/dL (11.7-16.9); MCH 35.3 pg (25.7-33.7); MCHC 33.1 g/dl (32.0-35.9); MEAN CELL VOLUME 106.7 fl (80-96); MEAN PLT VOLUME 9.3 fl (7.5-11.1); PLATELET COUNT 101 K/MM3 (134-434); RBC 3.98 M/mm3 (4.00-5.60); RDW 13.8 % (11.9-15.9); WHITE BLOOD COUNT 4.2 K/mm3 (4.0-10.0)
[2020-02-23 17:16] LABS: CREATININE 0.5 mg/dL (0.55-1.3)
[2020-02-23 17:18] LABS: BILIRUBIN,TOTAL 0.8 mg/dL (0.2-1); TOT PROT 7.3 g/dl (6.4-8.2)
[2020-02-23] MEDS ORDERED: ALBUTEROL SO4 0.083% IH SOL 2.5 MG/3 ML VIAL.NEB. NEB PRN (21:52)
[2020-02-23] MEDS: THIAMINE HCL 100 MG TABLET (FP) PO SCH (22:26)
[2020-02-23] MEDS: MELATONIN 5 MG TABLETS PO SCH (22:56)
[2020-02-24] MEDS: chlordiazePOXIDE HCL 25 MG CAPSULE PO SCH ×4 (06:20→22:07)
[2020-02-24] MEDS: hydrOXYzine PAMOATE 25 MG CAPSULE (FP) PO SCH ×5 (06:20→22:11)
[2020-02-24] MEDS: BUPRENORPHINE/NALOXONE 8 MG/2 MG FILM PACKET SL SCH ×3 (06:20→22:07)
[2020-02-24] MEDS: PRENATAL VITAMINS W/ FOLIC ACID TABLET (FP) PO SCH (10:42)
[2020-02-24] MEDS: LORATADINE 10 MG TABLET PO SCH (10:42)
[2020-02-24] MEDS: chlordiazePOXIDE HCL 25 MG CAPSULE PO PRN (10:42)
[2020-02-24] MEDS: TIOTROPIUM BROMIDE 2.5 MCG (SPIRIVA) RESPIMAT INHALER IH SCH ×2 (11:55→13:21)
[2020-02-24] MEDS: THIAMINE HCL 100 MG TABLET (FP) PO SCH (22:07)
[2020-02-24] MEDS: MELATONIN 5 MG TABLETS PO SCH (22:08)
[2020-02-25] MEDS: hydrOXYzine PAMOATE 25 MG CAPSULE (FP) PO SCH ×5 (05:45→22:14)
[2020-02-25] MEDS: BUPRENORPHINE/NALOXONE 8 MG/2 MG FILM PACKET SL SCH ×3 (05:45→22:13)
[2020-02-25] MEDS: chlordiazePOXIDE HCL 25 MG CAPSULE PO SCH ×4 (05:45→22:13)
[2020-02-25] MEDS ORDERED: MASKS NR ONE (08:56)
[2020-02-25] MEDS: TIOTROPIUM BROMIDE 2.5 MCG (SPIRIVA) RESPIMAT INHALER IH SCH (10:27)
[2020-02-25] MEDS: chlordiazePOXIDE HCL 25 MG CAPSULE PO PRN (10:28)
[2020-02-25] MEDS: PRENATAL VITAMINS W/ FOLIC ACID TABLET (FP) PO SCH (10:28)
[2020-02-25] MEDS: LORATADINE 10 MG TABLET PO SCH (10:28)
[2020-02-25] MEDS ORDERED: HYDROCORTISONE 1% TOPICAL CREAM 30 GM TUBE TP ONE (10:35)
[2020-02-25] MEDS ORDERED: COLLOIDAL OATMEAL 1 BAR EACH TP PRN (10:36)
[2020-02-25] MEDS ORDERED: diphenhydrAMINE HCL 25 MG CAPSULE (FP) PO ONE (10:45)
[2020-02-25] MEDS: HYDROCORTISONE 1% TOPICAL CREAM 30 GM TUBE TP SCH ×4 (12:12→22:12)
[2020-02-25] MEDS: THIAMINE HCL 100 MG TABLET (FP) PO SCH (22:13)
[2020-02-25] MEDS: MELATONIN 5 MG TABLETS PO SCH (22:13)
[2020-02-26] MEDS ORDERED: chlordiazePOXIDE HCL 10 MG CAPSULE PO PRN
[2020-02-26] MEDS: BUPRENORPHINE/NALOXONE 8 MG/2 MG FILM PACKET SL SCH ×3 (05:19→22:07)
[2020-02-26] MEDS: chlordiazePOXIDE HCL 10 MG CAPSULE PO SCH ×4 (05:19→22:06)
[2020-02-26] MEDS: hydrOXYzine PAMOATE 25 MG CAPSULE (FP) PO SCH ×5 (05:19→22:06)
[2020-02-26] MEDS: LORATADINE 10 MG TABLET PO SCH (10:20)
[2020-02-26] MEDS: TIOTROPIUM BROMIDE 2.5 MCG (SPIRIVA) RESPIMAT INHALER IH SCH (10:21)
[2020-02-26] MEDS: HYDROCORTISONE 1% TOPICAL CREAM 30 GM TUBE TP SCH ×4 (10:21→22:44)
[2020-02-26] MEDS: PRENATAL VITAMINS W/ FOLIC ACID TABLET (FP) PO SCH (10:21)
[2020-02-26] MEDS: THIAMINE HCL 100 MG TABLET (FP) PO SCH (22:06)
[2020-02-26] MEDS: MELATONIN 5 MG TABLETS PO SCH (22:08)
[2020-02-27] MEDS: hydrOXYzine PAMOATE 25 MG CAPSULE (FP) PO SCH ×5 (05:36→21:59)
[2020-02-27] MEDS: BUPRENORPHINE/NALOXONE 8 MG/2 MG FILM PACKET SL SCH ×3 (05:36→21:59)
[2020-02-27] MEDS: chlordiazePOXIDE HCL 10 MG CAPSULE PO SCH ×2 (05:36→17:25)
[2020-02-27] MEDS: LORATADINE 10 MG TABLET PO SCH (10:19)
[2020-02-27] MEDS: TIOTROPIUM BROMIDE 2.5 MCG (SPIRIVA) RESPIMAT INHALER IH SCH (10:19)
[2020-02-27] MEDS: HYDROCORTISONE 1% TOPICAL CREAM 30 GM TUBE TP SCH ×4 (10:21→22:46)
[2020-02-27] MEDS: PRENATAL VITAMINS W/ FOLIC ACID TABLET (FP) PO SCH (10:21)
[2020-02-27] MEDS: THIAMINE HCL 100 MG TABLET (FP) PO SCH (21:59)
[2020-02-27] MEDS: MELATONIN 5 MG TABLETS PO SCH (22:00)
[2020-02-28] MEDS ORDERED: chlordiazePOXIDE HCL 10 MG CAPSULE PO ONE (05:00)
[2020-02-28] MEDS: BUPRENORPHINE/NALOXONE 8 MG/2 MG FILM PACKET SL SCH (05:42)
[2020-02-28] MEDS: hydrOXYzine PAMOATE 25 MG CAPSULE (FP) PO SCH (05:42)
[2020-02-28 09:49] VITALS: BP 97/63; PULSE 99; TEMP 98.6
[2020-02-28 11:33] LABS: GLUCOSE,FASTING 80 mg/dL (74-106)
[2020-02-28 11:37] LABS: SGOT/AST 42 U/L (15-37)
== END 2020-02-28 10:08 | disposition home or self-care (01) | DRG 775 ==
LOC: YASAS 11:08 → Y6N 12:45
PROVIDERS: ADMIT Allergy & Immunology; ATTEND Allergy & Immunology
PROC: HZ2ZZZZ Detoxification Services for Substance Abuse Treatment (ICD-10-PCS; principal; 2020-02-23)
DX: F10.230 Alcohol dependence with withdrawal, uncomplicated (principal); F17.210 Nicotine dependence, cigarettes, uncomplicated; F41.9 Anxiety disorder, unspecified; F19.24 Other psychoactive substance dependence with psychoactive substance-induced mood disorder; G62.1 Alcoholic polyneuropathy; J43.0 Unilateral pulmonary emphysema [MacLeod's syndrome]; R74.01 Elevation of levels of liver transaminase levels; D69.6 Thrombocytopenia, unspecified; R73.9 Hyperglycemia, unspecified; L98.8 Other specified disorders of the skin and subcutaneous tissue; L29.9 Pruritus, unspecified; R25.1 Tremor, unspecified
CPT/HCPCS: 36415; 80053; 82947; 83036; 84450; 85027; 86780; C9803; U0003

== ENCOUNTER 2020-03-22 12:32 | Inpatient (IN) | payer OTHER ==
[2020-03-22 13:35] VITALS: BMI 18.7
[2020-03-22] MEDS ORDERED: ONDANSETRON *ODT* 4 MG TABLET SL PRN (14:36)
[2020-03-22] MEDS ORDERED: BISMUTH SUBSALICYLATE 262 MG/15 ML BTL PO PRN (14:36)
[2020-03-22] MEDS ORDERED: NICOTINE POLACRILEX 2 MG GUM BUC PRN (14:36)
[2020-03-22] MEDS ORDERED: MAG HYDROX/AL HYDROX/SIMETH 30 ML UNIT-DOSE CUP PO PRN (14:36)
[2020-03-22] MEDS ORDERED: MAGNESIUM HYDROX 2400MG/30ML ORAL SUSPENSION 30 ML CUP PO PRN (14:36)
[2020-03-22] MEDS ORDERED: MAGNESIUM CITRATE 300 ML BOTTLE PO PRN (14:36)
[2020-03-22] MEDS ORDERED: ACETAMINOPHEN 325 MG TABLET (FP) PO PRN ×2 (14:36)
[2020-03-22] MEDS ORDERED: MENTHOL/PHENOL 1 EACH UD MM PRN (14:36)
[2020-03-22] MEDS ORDERED: IBUPROFEN 400 MG TABLET (FP) PO PRN (14:36)
[2020-03-22] MEDS ORDERED: chlordiazePOXIDE HCL 25 MG CAPSULE PO PRN (14:36)
[2020-03-22] MEDS: NICOTINE 21 MG/24 HOURS TOPICAL PATCH TD SCH (15:55)
[2020-03-22] MEDS: chlordiazePOXIDE HCL 25 MG CAPSULE PO SCH ×2 (17:41→22:08)
[2020-03-22] MEDS: hydrOXYzine PAMOATE 25 MG CAPSULE (FP) PO SCH ×2 (17:42→22:09)
[2020-03-22 18:24] LABS: HEMOGLOBIN 12.8 GM/dL (11.7-16.9); MCHC 33.7 g/dl (32.0-35.9); MEAN CELL VOLUME 103.9 fl (80-96); MEAN PLT VOLUME 10.1 fl (7.5-11.1); PLATELET COUNT 94 K/MM3 (134-434); POTASSIUM 3.5 mmol/L (3.5-5.1); RBC 3.66 M/mm3 (4.00-5.60); RDW 13.5 % (11.9-15.9); WHITE BLOOD COUNT 3.3 K/mm3 (4.0-10.0)
[2020-03-22 18:27] LABS: CALCIUM 8.8 mg/dL (8.5-10.1)
[2020-03-22 18:28] LABS: ALBUMIN 3.8 g/dl (3.4-5.0); BLOOD UREA NITROGEN 9.9 mg/dL (7-18)
[2020-03-22 18:31] LABS: CREATININE 0.6 mg/dL (0.55-1.3)
[2020-03-22 18:32] LABS: BILIRUBIN,TOTAL 0.4 mg/dL (0.2-1); TOT PROT 7.1 g/dl (6.4-8.2)
[2020-03-22] MEDS: MELATONIN 5 MG TABLETS PO SCH (22:06)
[2020-03-22] MEDS: METHOCARBAMOL 500 MG TABLET PO PRN (22:06)
[2020-03-22] MEDS: THIAMINE HCL 100 MG TABLET (FP) PO SCH (22:06)
[2020-03-23] MEDS: chlordiazePOXIDE HCL 25 MG CAPSULE PO SCH ×4 (05:33→22:11)
[2020-03-23] MEDS: hydrOXYzine PAMOATE 25 MG CAPSULE (FP) PO SCH ×2 (05:35→10:11)
[2020-03-23] MEDS ORDERED: BUPRENORPHINE/NALOXONE 8 MG/2 MG FILM PACKET SL ONE (09:50)
[2020-03-23] MEDS: PRENATAL VITAMINS W/ FOLIC ACID TABLET (FP) PO SCH (10:10)
[2020-03-23] MEDS: NICOTINE 21 MG/24 HOURS TOPICAL PATCH TD SCH (10:11)
[2020-03-23] MEDS: ALBUTEROL SO4 HFA INHALER IH PRN (10:12)
[2020-03-23] MEDS ORDERED: ALBUTEROL SO4 0.083% IH SOL 2.5 MG/3 ML VIAL.NEB. NEB PRN (11:04)
[2020-03-23] MEDS: hydrOXYzine PAMOATE 50 MG CAPSULE (FP) PO SCH ×4 (13:27→22:15)
[2020-03-23] MEDS: LORATADINE 10 MG TABLET PO SCH (13:27)
[2020-03-23] MEDS: BUPRENORPHINE/NALOXONE 8 MG/2 MG FILM PACKET SL SCH ×2 (14:39→22:11)
[2020-03-23] MEDS: MELATONIN 5 MG TABLETS PO SCH (22:10)
[2020-03-23] MEDS: THIAMINE HCL 100 MG TABLET (FP) PO SCH (22:10)
[2020-03-24] MEDS: hydrOXYzine PAMOATE 50 MG CAPSULE (FP) PO SCH ×6 (03:07→22:17)
[2020-03-24] MEDS: chlordiazePOXIDE HCL 25 MG CAPSULE PO SCH ×4 (05:49→22:13)
[2020-03-24] MEDS: BUPRENORPHINE/NALOXONE 8 MG/2 MG FILM PACKET SL SCH ×3 (05:49→22:13)
[2020-03-24] MEDS: PRENATAL VITAMINS W/ FOLIC ACID TABLET (FP) PO SCH (10:09)
[2020-03-24] MEDS: NICOTINE 21 MG/24 HOURS TOPICAL PATCH TD SCH (10:09)
[2020-03-24] MEDS: LORATADINE 10 MG TABLET PO SCH (10:09)
[2020-03-24 12:47] LABS: HEMATOCRIT 36.6 % (35.4-49); HEMOGLOBIN 12.1 GM/dL (11.7-16.9); MCH 34.7 pg (25.7-33.7); MCHC 33.1 g/dl (32.0-35.9); MEAN PLT VOLUME 10.7 fl (7.5-11.1); PLATELET COUNT 90 K/MM3 (134-434); RBC 3.49 M/mm3 (4.00-5.60); RDW 13.6 % (11.9-15.9); WHITE BLOOD COUNT 4.3 K/mm3 (4.0-10.0)
[2020-03-24] MEDS: THIAMINE HCL 100 MG TABLET (FP) PO SCH (22:13)
[2020-03-24] MEDS: MELATONIN 5 MG TABLETS PO SCH (22:13)
[2020-03-25] MEDS ORDERED: chlordiazePOXIDE HCL 10 MG CAPSULE PO PRN
[2020-03-25] MEDS: chlordiazePOXIDE HCL 10 MG CAPSULE PO SCH ×4 (06:17→22:06)
[2020-03-25] MEDS: hydrOXYzine PAMOATE 50 MG CAPSULE (FP) PO SCH ×5 (06:17→22:05)
[2020-03-25] MEDS: BUPRENORPHINE/NALOXONE 8 MG/2 MG FILM PACKET SL SCH ×3 (06:20→22:06)
[2020-03-25] MEDS: PRENATAL VITAMINS W/ FOLIC ACID TABLET (FP) PO SCH (10:07)
[2020-03-25] MEDS: LORATADINE 10 MG TABLET PO SCH (10:07)
[2020-03-25] MEDS: NICOTINE 21 MG/24 HOURS TOPICAL PATCH TD SCH (10:07)
[2020-03-25] MEDS: ALBUTEROL SO4 HFA INHALER IH PRN (10:39)
[2020-03-25] MEDS: THIAMINE HCL 100 MG TABLET (FP) PO SCH (22:04)
[2020-03-25] MEDS: MELATONIN 5 MG TABLETS PO SCH (22:05)
[2020-03-26] MEDS: chlordiazePOXIDE HCL 10 MG CAPSULE PO SCH ×2 (06:03→18:17)
[2020-03-26] MEDS: hydrOXYzine PAMOATE 50 MG CAPSULE (FP) PO SCH ×9 (06:04→22:43)
[2020-03-26] MEDS: BUPRENORPHINE/NALOXONE 8 MG/2 MG FILM PACKET SL SCH ×3 (06:08→22:02)
[2020-03-26] MEDS: METHOCARBAMOL 500 MG TABLET PO PRN (10:09)
[2020-03-26] MEDS: LORATADINE 10 MG TABLET PO SCH (10:09)
[2020-03-26] MEDS: NICOTINE 21 MG/24 HOURS TOPICAL PATCH TD SCH (10:09)
[2020-03-26] MEDS: PRENATAL VITAMINS W/ FOLIC ACID TABLET (FP) PO SCH (10:09)
[2020-03-26] MEDS: ALBUTEROL SO4 HFA INHALER IH PRN (10:11)
[2020-03-26] MEDS: THIAMINE HCL 100 MG TABLET (FP) PO SCH (22:02)
[2020-03-26] MEDS: MELATONIN 5 MG TABLETS PO SCH (22:02)
[2020-03-27] MEDS: hydrOXYzine PAMOATE 50 MG CAPSULE (FP) PO SCH ×2 (03:30→06:22)
[2020-03-27] MEDS ORDERED: chlordiazePOXIDE HCL 10 MG CAPSULE PO ONE (05:00)
[2020-03-27] MEDS: BUPRENORPHINE/NALOXONE 8 MG/2 MG FILM PACKET SL SCH (06:03)
[2020-03-27 09:27] VITALS: BP 117/61; PULSE 80; TEMP 97.3
== END 2020-03-27 09:28 | disposition home or self-care (01) | DRG 775 ==
LOC: YASAS 12:32 → Y6N 15:05
PROVIDERS: ADMIT Allergy & Immunology; ATTEND Allergy & Immunology
PROC: HZ2ZZZZ Detoxification Services for Substance Abuse Treatment (ICD-10-PCS; principal; 2020-03-22)
DX: F10.230 Alcohol dependence with withdrawal, uncomplicated (principal); F17.210 Nicotine dependence, cigarettes, uncomplicated; F19.24 Other psychoactive substance dependence with psychoactive substance-induced mood disorder; J43.0 Unilateral pulmonary emphysema [MacLeod's syndrome]; J45.909 Unspecified asthma, uncomplicated; G62.89 Other specified polyneuropathies; L85.3 Xerosis cutis; R21 Rash and other nonspecific skin eruption; R74.01 Elevation of levels of liver transaminase levels; R63.4 Abnormal weight loss; Z68.1 Body mass index [BMI] 19.9 or less, adult; Z51.81 Encounter for therapeutic drug level monitoring; Z79.899 Other long term (current) drug therapy
CPT/HCPCS: 36415; 80053; 85027; 86780; C9803; U0003

== ENCOUNTER 2020-05-03 14:55 | Inpatient (IN) | payer OTHER ==
[2020-05-03 17:01] VITALS: BMI 18.1
[2020-05-03] MEDS ORDERED: MAG HYDROX/AL HYDROX/SIMETH 30 ML UNIT-DOSE CUP PO PRN (17:03)
[2020-05-03] MEDS ORDERED: ONDANSETRON *ODT* 4 MG TABLET SL PRN (17:03)
[2020-05-03] MEDS ORDERED: MAGNESIUM HYDROX 2400MG/30ML ORAL SUSPENSION 30 ML CUP PO PRN (17:03)
[2020-05-03] MEDS ORDERED: MENTHOL/PHENOL 1 EACH UD MM PRN (17:03)
[2020-05-03] MEDS ORDERED: BISMUTH SUBSALICYLATE 524 MG/30 ML UD PO PRN (17:03)
[2020-05-03] MEDS ORDERED: MAGNESIUM CITRATE 300 ML BOTTLE PO PRN (17:03)
[2020-05-03] MEDS ORDERED: ACETAMINOPHEN 325 MG TABLET (FP) PO PRN ×2 (17:03)
[2020-05-03] MEDS ORDERED: IBUPROFEN 400 MG TABLET (FP) PO PRN (17:03)
[2020-05-03] MEDS ORDERED: NICOTINE POLACRILEX 2 MG GUM BUC PRN (17:03)
[2020-05-03] MEDS ORDERED: METHOCARBAMOL 500 MG TABLET PO PRN (17:03)
[2020-05-03] MEDS ORDERED: HYDROCORTISONE 0.5% TOPICAL CREAM 30 GM TUBE TP PRN (17:07)
[2020-05-03] MEDS ORDERED: MELATONIN 5 MG TABLETS PO SCH (22:00)
[2020-05-03] MEDS ORDERED: BACITRACIN 0.9 GM PACKET TP ONE (22:15)
[2020-05-03] MEDS: chlordiazePOXIDE HCL 25 MG CAPSULE PO SCH ×3 (23:19→23:20)
[2020-05-03] MEDS: BUPRENORPHINE/NALOXONE 8 MG/2 MG FILM PACKET SL SCH (23:22)
[2020-05-03] MEDS: THIAMINE HCL 100 MG TABLET (FP) PO SCH (23:22)
[2020-05-04] MEDS: chlordiazePOXIDE HCL 25 MG CAPSULE PO SCH ×4 (05:31→22:16)
[2020-05-04] MEDS: BUPRENORPHINE/NALOXONE 8 MG/2 MG FILM PACKET SL SCH ×3 (05:31→22:16)
[2020-05-04] MEDS: LORATADINE 10 MG TABLET PO SCH (10:09)
[2020-05-04] MEDS: PRENATAL VITAMINS W/ FOLIC ACID TABLET (FP) PO SCH (10:09)
[2020-05-04] MEDS: NICOTINE 14 MG/24 HOURS TOPICAL PATCH TD SCH (10:11)
[2020-05-04 11:19] LABS: ALBUMIN 3.9 g/dl (3.4-5.0); CALCIUM 8.7 mg/dL (8.5-10.1)
[2020-05-04 11:20] LABS: BLOOD UREA NITROGEN 9.6 mg/dL (7-18)
[2020-05-04 11:23] LABS: CREATININE 0.6 mg/dL (0.55-1.3)
[2020-05-04 11:24] LABS: BILIRUBIN,TOTAL 1.5 mg/dL (0.2-1); TOT PROT 7.1 g/dl (6.4-8.2)
[2020-05-04 11:26] LABS: HEMOGLOBIN 12.9 GM/dL (11.7-16.9); MCHC 34.1 g/dl (32.0-35.9); WHITE BLOOD COUNT 3.4 K/mm3 (4.0-10.0)
[2020-05-04 11:32] LABS: HEMATOCRIT 37.8 % (35.4-49); MCH 34.8 pg (25.7-33.7); MEAN CELL VOLUME 101.9 fl (80-96); MEAN PLT VOLUME 10.1 fl (7.5-11.1); PLATELET COUNT 129 K/MM3 (134-434); RBC 3.71 M/mm3 (4.00-5.60); RDW 14.1 % (11.9-15.9)
[2020-05-04] MEDS: chlordiazePOXIDE HCL 25 MG CAPSULE PO PRN (13:04)
[2020-05-04] MEDS: THIAMINE HCL 100 MG TABLET (FP) PO SCH (22:15)
[2020-05-04] MEDS: MELATONIN 5 MG TABLETS PO SCH (22:15)
[2020-05-04] MEDS: ALBUTEROL SO4 HFA INHALER IH PRN (22:17)
[2020-05-05] MEDS: chlordiazePOXIDE HCL 25 MG CAPSULE PO SCH ×4 (05:19→22:00)
[2020-05-05] MEDS: BUPRENORPHINE/NALOXONE 8 MG/2 MG FILM PACKET SL SCH ×3 (05:20→22:00)
[2020-05-05] MEDS: PRENATAL VITAMINS W/ FOLIC ACID TABLET (FP) PO SCH (10:18)
[2020-05-05] MEDS: LORATADINE 10 MG TABLET PO SCH (10:18)
[2020-05-05] MEDS: NICOTINE 14 MG/24 HOURS TOPICAL PATCH TD SCH (10:20)
[2020-05-05 11:52] LABS: EPI CELLS 33 /uL (0-25.1); HYALINE CASTS 4 /uL (0-3.1); PH,URINE >= 9.0 (5.0-8.0); URINE APPEARANCE CLOUDY; URINE BACTERIA 161 /uL (0-1359); URINE BILIRUBIN NEGATIVE (NEGATIVE); URINE COLOR DK YELLOW; URINE GLUCOSE (UA) NEGATIVE (NEGATIVE); URINE KETONE NEGATIVE (NEGATIVE); URINE LEUK ESTERASE TRACE (NEGATIVE); URINE NITRITE NEGATIVE (NEGATIVE); URINE PROTEIN 1+ (NEGATIVE); URINE RBC 19 /uL (0-23.9); URINE WBC 79 /uL (0-25.8)
[2020-05-05] MEDS: ALBUTEROL SO4 HFA INHALER IH PRN (12:23)
[2020-05-05] MEDS: chlordiazePOXIDE HCL 25 MG CAPSULE PO PRN (13:16)
[2020-05-05 13:49] LABS: URINE CRYSTALS FEW /hpf
[2020-05-05 18:43] LABS: EPI CELLS 26 /uL (0-25.1); HYALINE CASTS 8 /uL (0-3.1); URINE APPEARANCE CLOUDY; URINE BILIRUBIN 1+ (NEGATIVE); URINE COLOR DK YELLOW; URINE GLUCOSE (UA) NEGATIVE (NEGATIVE); URINE KETONE TRACE (NEGATIVE); URINE LEUK ESTERASE TRACE (NEGATIVE); URINE NITRITE POSITIVE (NEGATIVE); URINE PROTEIN 1+ (NEGATIVE); URINE RBC 44 /uL (0-23.9); URINE WBC 172 /uL (0-25.8)
[2020-05-05 19:13] LABS: URINE BACTERIA 74 /uL (0-1359)
[2020-05-05] MEDS: MELATONIN 5 MG TABLETS PO SCH (22:00)
[2020-05-05] MEDS: THIAMINE HCL 100 MG TABLET (FP) PO SCH (22:00)
[2020-05-06] MEDS ORDERED: chlordiazePOXIDE HCL 10 MG CAPSULE PO PRN
[2020-05-06] MEDS ORDERED: chlordiazePOXIDE HCL 10 MG CAPSULE PO SCH (05:00)
[2020-05-06] MEDS: BUPRENORPHINE/NALOXONE 8 MG/2 MG FILM PACKET SL SCH (05:41)
[2020-05-06 09:28] VITALS: BP 117/77; PULSE 105; TEMP 97.3
[2020-05-07] MEDS ORDERED: chlordiazePOXIDE HCL 10 MG CAPSULE PO SCH (05:00)
[2020-05-08] MEDS ORDERED: chlordiazePOXIDE HCL 10 MG CAPSULE PO ONE (05:00)
== END 2020-05-06 09:50 | disposition left against medical advice (07) | DRG 770 ==
LOC: YASAS 14:55 → Y3N 22:07
PROVIDERS: ADMIT Allergy & Immunology; ATTEND Allergy & Immunology
PROC: HZ2ZZZZ Detoxification Services for Substance Abuse Treatment (ICD-10-PCS; principal; 2020-05-03)
DX: F10.230 Alcohol dependence with withdrawal, uncomplicated (principal); F11.20 Opioid dependence, uncomplicated; F17.210 Nicotine dependence, cigarettes, uncomplicated; F41.9 Anxiety disorder, unspecified; G62.1 Alcoholic polyneuropathy; J43.0 Unilateral pulmonary emphysema [MacLeod's syndrome]; J30.9 Allergic rhinitis, unspecified; N39.0 Urinary tract infection, site not specified; R74.01 Elevation of levels of liver transaminase levels; R63.4 Abnormal weight loss; Z68.1 Body mass index [BMI] 19.9 or less, adult; Z56.0 Unemployment, unspecified
CPT/HCPCS: 36415; 80053; 81003; 85027; 86780; 87086; C9803; U0003

== ENCOUNTER 2020-06-26 13:45 | Inpatient (IN) | payer OTHER ==
[2020-06-26 14:37] VITALS: BMI 24.7
[2020-06-26] MEDS ORDERED: BISMUTH SUBSALICYLATE 262 MG/15 ML BTL PO PRN (14:53)
[2020-06-26] MEDS ORDERED: ONDANSETRON *ODT* 4 MG TABLET SL PRN (14:53)
[2020-06-26] MEDS ORDERED: IBUPROFEN 400 MG TABLET (FP) PO PRN (14:53)
[2020-06-26] MEDS ORDERED: MENTHOL/PHENOL 1 EACH UD MM PRN (14:53)
[2020-06-26] MEDS ORDERED: MAGNESIUM CITRATE 300 ML BOTTLE PO PRN (14:53)
[2020-06-26] MEDS ORDERED: METHOCARBAMOL 500 MG TABLET PO PRN (14:53)
[2020-06-26] MEDS ORDERED: MAG HYDROX/AL HYDROX/SIMETH 30 ML UNIT-DOSE CUP PO PRN (14:53)
[2020-06-26] MEDS ORDERED: MAGNESIUM HYDROX 2400MG/30ML ORAL SUSPENSION 30 ML CUP PO PRN (14:53)
[2020-06-26] MEDS ORDERED: ACETAMINOPHEN 325 MG TABLET (FP) PO PRN ×2 (14:53)
[2020-06-26] MEDS ORDERED: NICOTINE POLACRILEX 2 MG GUM BUC PRN (14:53)
[2020-06-26] MEDS ORDERED: chlordiazePOXIDE HCL 25 MG CAPSULE PO PRN (14:53)
[2020-06-26] MEDS ORDERED: COLLOIDAL OATMEAL 1 BAR EACH TP ONE (15:05)
[2020-06-26] MEDS ORDERED: AMMONIUM LACTATE 12% LOTION 225 GM BOTTLE TP PRN (15:06)
[2020-06-26] MEDS: hydrOXYzine PAMOATE 25 MG CAPSULE (FP) PO PRN (15:56)
[2020-06-26] MEDS: LORATADINE 10 MG TABLET PO SCH (16:08)
[2020-06-26 17:05] LABS: HEMATOCRIT 37.2 % (35.4-49); HEMOGLOBIN 12.5 GM/dL (11.7-16.9); MCH 34.4 pg (25.7-33.7); MCHC 33.5 g/dl (32.0-35.9); MEAN CELL VOLUME 102.8 fl (80-96); PLATELET COUNT 96 K/MM3 (134-434); RBC 3.62 M/mm3 (4.00-5.60); WHITE BLOOD COUNT 3.3 K/mm3 (4.0-10.0)
[2020-06-26 17:10] LABS: CALCIUM 8.3 mg/dL (8.5-10.1)
[2020-06-26 17:11] LABS: ALBUMIN 3.8 g/dl (3.4-5.0); BLOOD UREA NITROGEN 12.1 mg/dL (7-18)
[2020-06-26 17:14] LABS: CREATININE 0.6 mg/dL (0.55-1.3)
[2020-06-26 17:16] LABS: BILIRUBIN,TOTAL 0.4 mg/dL (0.2-1); TOT PROT 6.6 g/dl (6.4-8.2)
[2020-06-26] MEDS: chlordiazePOXIDE HCL 25 MG CAPSULE PO SCH ×2 (18:34→22:24)
[2020-06-26] MEDS ORDERED: MELATONIN 5 MG TABLETS PO SCH (22:00)
[2020-06-26] MEDS: BUPRENORPHINE/NALOXONE 8 MG/2 MG FILM PACKET SL SCH (22:22)
[2020-06-26] MEDS: THIAMINE HCL 100 MG TABLET (FP) PO SCH (22:25)
[2020-06-26] MEDS: ALBUTEROL SO4 HFA INHALER IH PRN (23:35)
[2020-06-27] MEDS: hydrOXYzine PAMOATE 25 MG CAPSULE (FP) PO PRN ×2 (03:02→10:21)
[2020-06-27] MEDS: ALBUTEROL SO4 HFA INHALER IH PRN (03:30)
[2020-06-27] MEDS: BUPRENORPHINE/NALOXONE 8 MG/2 MG FILM PACKET SL SCH ×3 (05:34→22:12)
[2020-06-27] MEDS: chlordiazePOXIDE HCL 25 MG CAPSULE PO SCH ×2 (05:54→10:22)
[2020-06-27] MEDS: LORATADINE 10 MG TABLET PO SCH (10:21)
[2020-06-27] MEDS: PRENATAL VITAMINS W/ FOLIC ACID TABLET (FP) PO SCH (10:21)
[2020-06-27] MEDS ORDERED: LORazepam 1 MG TABLET PO PRN (11:06)
[2020-06-27] MEDS ORDERED: POTASSIUM CHLORIDE ORAL LIQUID 20 MEQ/15 ML PO ONE (11:17)
[2020-06-27] MEDS: LORazepam 2 MG TABLET PO SCH ×2 (17:36→22:12)
[2020-06-27] MEDS ORDERED: MELATONIN 5 MG TABLETS PO SCH (22:00)
[2020-06-27] MEDS ORDERED: POTASSIUM CHLORIDE ORAL LIQUID 20 MEQ/15 ML PO SCH (22:00)
[2020-06-27] MEDS: THIAMINE HCL 100 MG TABLET (FP) PO SCH (22:12)
[2020-06-28] MEDS ORDERED: chlordiazePOXIDE HCL 25 MG CAPSULE PO SCH (05:00)
[2020-06-28] MEDS: LORazepam 2 MG TABLET PO SCH ×3 (05:33→17:30)
[2020-06-28] MEDS: BUPRENORPHINE/NALOXONE 8 MG/2 MG FILM PACKET SL SCH ×2 (05:33→13:39)
[2020-06-28] MEDS: PRENATAL VITAMINS W/ FOLIC ACID TABLET (FP) PO SCH (10:44)
[2020-06-28] MEDS: LORATADINE 10 MG TABLET PO SCH (10:45)
[2020-06-28 11:27] LABS: HEMATOCRIT 38.8 % (35.4-49); HEMOGLOBIN 13.1 GM/dL (11.7-16.9); MCH 34.6 pg (25.7-33.7); MCHC 33.7 g/dl (32.0-35.9); MEAN CELL VOLUME 102.8 fl (80-96); MEAN PLT VOLUME 10.5 fl (7.5-11.1); PLATELET COUNT 92 K/MM3 (134-434); RBC 3.78 M/mm3 (4.00-5.60); RDW 14.7 % (11.9-15.9); WHITE BLOOD COUNT 5.1 K/mm3 (4.0-10.0)
[2020-06-28 11:33] LABS: INR 0.91 (0.83-1.09); PROTHROMBIN TIME (PATIENT) 11.1 SEC (9.7-13.0)
[2020-06-28 17:08] VITALS: BP 124/73; PULSE 83; TEMP 97.1
[2020-06-29] MEDS ORDERED: chlordiazePOXIDE HCL 10 MG CAPSULE PO PRN
[2020-06-29] MEDS ORDERED: LORazepam 1 MG TABLET PO SCH (05:00)
[2020-06-29] MEDS ORDERED: chlordiazePOXIDE HCL 10 MG CAPSULE PO SCH (05:00)
[2020-06-29 08:07] LABS: SARS-CoV-2 NAA Not Detected (Not Detected)
[2020-06-30] MEDS ORDERED: LORazepam 0.5 MG TABLET PO PRN
[2020-06-30] MEDS ORDERED: chlordiazePOXIDE HCL 10 MG CAPSULE PO SCH (05:00)
[2020-06-30] MEDS ORDERED: LORazepam 0.5 MG TABLET PO SCH (05:00)
[2020-07-01] MEDS ORDERED: chlordiazePOXIDE HCL 10 MG CAPSULE PO ONE (05:00)
[2020-07-01] MEDS ORDERED: LORazepam 0.5 MG TABLET PO ONE (05:00)
== END 2020-06-28 19:58 | disposition left against medical advice (07) | DRG 770 ==
LOC: YASAS 13:45 → Y6N 15:20
PROVIDERS: ADMIT Allergy & Immunology; ATTEND Allergy & Immunology
PROC: HZ2ZZZZ Detoxification Services for Substance Abuse Treatment (ICD-10-PCS; principal; 2020-06-26)
DX: F10.230 Alcohol dependence with withdrawal, uncomplicated (principal); F11.20 Opioid dependence, uncomplicated; F17.210 Nicotine dependence, cigarettes, uncomplicated; F10.280 Alcohol dependence with alcohol-induced anxiety disorder; F10.282 Alcohol dependence with alcohol-induced sleep disorder; F41.9 Anxiety disorder, unspecified; G62.1 Alcoholic polyneuropathy; M54.5 Low back pain; G89.29 Other chronic pain; Z51.81 Encounter for therapeutic drug level monitoring
CPT/HCPCS: 36415; 80053; 84132; 84450; 84460; 85027; 85610; 86780; 93005; 93010; C9803; U0003; U0005

== ENCOUNTER 2020-08-04 20:46 | Inpatient (IN) | payer OTHER ==
[2020-08-04] MEDS ORDERED: NICOTINE POLACRILEX 2 MG GUM BUC PRN (23:25)
[2020-08-04] MEDS ORDERED: guaiFENesin 200 MG/10 ML 10 ML UNIT-DOSE CUPS PO PRN (23:25)
[2020-08-04] MEDS ORDERED: DICYCLOMINE HCL 10 MG CAPSULE PO PRN (23:25)
[2020-08-04] MEDS ORDERED: MENTHOL/PHENOL 1 EACH UD MM PRN (23:25)
[2020-08-04] MEDS ORDERED: METHOCARBAMOL 500 MG TABLET PO PRN (23:25)
[2020-08-04] MEDS ORDERED: MAG HYDROX/AL HYDROX/SIMETH 30 ML UNIT-DOSE CUP PO PRN (23:25)
[2020-08-04] MEDS ORDERED: MAGNESIUM HYDROX 2400MG/30ML ORAL SUSPENSION 30 ML CUP PO PRN (23:25)
[2020-08-04] MEDS ORDERED: IBUPROFEN 400 MG TABLET (FP) PO PRN (23:25)
[2020-08-04] MEDS ORDERED: NALOXONE HCL 0.4 MG/ML VIAL IM PRN (23:25)
[2020-08-04] MEDS ORDERED: NALOXONE (NARCAN) HCL 4 MG/0.1 ML SPRAY NS PRN (23:25)
[2020-08-04] MEDS ORDERED: hydrOXYzine PAMOATE 25 MG CAPSULE (FP) PO PRN (23:25)
[2020-08-04] MEDS ORDERED: MAGNESIUM CITRATE 300 ML BOTTLE PO PRN (23:25)
[2020-08-04] MEDS ORDERED: BISMUTH SUBSALICYLATE 524 MG/30 ML PO PRN (23:25)
[2020-08-04] MEDS ORDERED: ONDANSETRON *ODT* 4 MG TABLET SL PRN (23:25)
[2020-08-04] MEDS ORDERED: ACETAMINOPHEN 325 MG TABLET (FP) PO PRN ×2 (23:25)
[2020-08-04 23:26] VITALS: BMI 18.4
[2020-08-05] MEDS ORDERED: ALBUTEROL SO4 HFA INHALER IH PRN ×2 (07:25→11:52)
[2020-08-05] MEDS: BUPRENORPHINE/NALOXONE 8 MG/2 MG FILM PACKET SL SCH ×3 (08:23→23:18)
[2020-08-05 10:30] LABS: HEMATOCRIT 36.9 % (35.4-49); HEMOGLOBIN 12.7 GM/dL (11.7-16.9); MCH 35.8 pg (25.7-33.7); MCHC 34.5 g/dl (32.0-35.9); MEAN PLT VOLUME 9.6 fl (7.5-11.1); PLATELET COUNT 144 K/MM3 (134-434); RBC 3.55 M/mm3 (4.00-5.60); RDW 14.9 % (11.9-15.9); WHITE BLOOD COUNT 7.9 K/mm3 (4.0-10.0)
[2020-08-05 10:35] LABS: ALBUMIN 3.3 g/dl (3.4-5.0); BLOOD UREA NITROGEN 10.7 mg/dL (7-18)
[2020-08-05 10:38] LABS: CREATININE 0.5 mg/dL (0.55-1.3)
[2020-08-05 10:42] LABS: BILIRUBIN,TOTAL 0.5 mg/dL (0.2-1); TOT PROT 6.7 g/dl (6.4-8.2)
[2020-08-05] MEDS: NICOTINE 21 MG/24 HOURS TOPICAL PATCH TD SCH (11:33)
[2020-08-05] MEDS: PRENATAL VITAMINS W/ FOLIC ACID TABLET (FP) PO SCH (11:33)
[2020-08-05] MEDS ORDERED: chlordiazePOXIDE HCL 25 MG CAPSULE PO SCH (11:50)
[2020-08-05] MEDS ORDERED: chlordiazePOXIDE HCL 25 MG CAPSULE PO PRN (11:50)
[2020-08-05] MEDS: LORATADINE 10 MG TABLET PO SCH (12:34)
[2020-08-05] MEDS: POTASSIUM CHLORIDE TABS 20 MEQ TABLET.ER (FP) PO SCH ×2 (12:34→18:24)
[2020-08-05] MEDS ORDERED: diazePAM 5 MG TABLET PO ONE (12:45)
[2020-08-05] MEDS ORDERED: diazePAM 5 MG TABLET PO PRN (12:45)
[2020-08-05] MEDS: P-EPHED 60MG/TRIPROLIDI 2.5MG TABLET PO PRN ×2 (14:17→20:46)
[2020-08-05] MEDS: diazePAM 5 MG TABLET PO SCH ×2 (18:24→23:17)
[2020-08-05] MEDS: THIAMINE HCL 100 MG TABLET (FP) PO SCH (23:18)
[2020-08-05] MEDS: MELATONIN 5 MG TABLETS PO SCH (23:19)
[2020-08-06] MEDS: diazePAM 5 MG TABLET PO SCH ×4 (05:45→22:18)
[2020-08-06] MEDS: BUPRENORPHINE/NALOXONE 8 MG/2 MG FILM PACKET SL SCH ×3 (05:46→22:18)
[2020-08-06] MEDS: P-EPHED 60MG/TRIPROLIDI 2.5MG TABLET PO PRN (05:48)
[2020-08-06] MEDS: NICOTINE 21 MG/24 HOURS TOPICAL PATCH TD SCH (10:40)
[2020-08-06] MEDS: PRENATAL VITAMINS W/ FOLIC ACID TABLET (FP) PO SCH (10:40)
[2020-08-06] MEDS: LORATADINE 10 MG TABLET PO SCH (10:42)
[2020-08-06] MEDS: POTASSIUM CHLORIDE TABS 20 MEQ TABLET.ER (FP) PO SCH ×2 (10:42→18:39)
[2020-08-06] MEDS: THIAMINE HCL 100 MG TABLET (FP) PO SCH (22:18)
[2020-08-06] MEDS: MELATONIN 5 MG TABLETS PO SCH (22:18)
[2020-08-07] MEDS ORDERED: chlordiazePOXIDE HCL 25 MG CAPSULE PO SCH (05:00)
[2020-08-07] MEDS: diazePAM 5 MG TABLET PO SCH ×2 (06:16→13:26)
[2020-08-07] MEDS: BUPRENORPHINE/NALOXONE 8 MG/2 MG FILM PACKET SL SCH ×2 (06:17→13:26)
[2020-08-07] MEDS: PRENATAL VITAMINS W/ FOLIC ACID TABLET (FP) PO SCH (10:14)
[2020-08-07] MEDS: POTASSIUM CHLORIDE TABS 20 MEQ TABLET.ER (FP) PO SCH (10:14)
[2020-08-07] MEDS: LORATADINE 10 MG TABLET PO SCH (10:14)
[2020-08-07] MEDS: NICOTINE 21 MG/24 HOURS TOPICAL PATCH TD SCH (10:14)
[2020-08-07] MEDS ORDERED: FAMOTIDINE 20 MG TABLET PO SCH (11:30)
[2020-08-07 19:18] VITALS: BP 145/96; PULSE 91; TEMP 98
[2020-08-08] MEDS ORDERED: chlordiazePOXIDE HCL 10 MG CAPSULE PO PRN
[2020-08-08] MEDS ORDERED: chlordiazePOXIDE HCL 10 MG CAPSULE PO SCH (05:00)
[2020-08-08] MEDS ORDERED: diazePAM 5 MG TABLET PO SCH (06:00)
[2020-08-08 14:07] LABS: SARS-CoV-2 NAA Not Detected (Not Detected)
[2020-08-09] MEDS ORDERED: chlordiazePOXIDE HCL 10 MG CAPSULE PO SCH (05:00)
[2020-08-09] MEDS ORDERED: diazePAM 5 MG TABLET PO ONE (06:00)
[2020-08-10] MEDS ORDERED: chlordiazePOXIDE HCL 10 MG CAPSULE PO ONE (05:00)
== END 2020-08-07 16:40 | disposition left against medical advice (07) | DRG 770 ==
LOC: YASAS 20:46 → Y6N 08-05 01:22 → UNDOADMIN 08-05 01:22 → UNDODISIN 08-07 16:40
PROVIDERS: ADMIT Allergy & Immunology; ATTEND Allergy & Immunology
PROC: HZ2ZZZZ Detoxification Services for Substance Abuse Treatment (ICD-10-PCS; principal; 2020-08-05)
DX: F10.230 Alcohol dependence with withdrawal, uncomplicated (principal); F11.20 Opioid dependence, uncomplicated; F17.210 Nicotine dependence, cigarettes, uncomplicated; F10.282 Alcohol dependence with alcohol-induced sleep disorder; F19.24 Other psychoactive substance dependence with psychoactive substance-induced mood disorder; F41.9 Anxiety disorder, unspecified; E87.6 Hypokalemia; G62.9 Polyneuropathy, unspecified; G47.00 Insomnia, unspecified; I10 Essential (primary) hypertension; J43.0 Unilateral pulmonary emphysema [MacLeod's syndrome]; K21.9 Gastro-esophageal reflux disease without esophagitis; M54.5 Low back pain; G89.29 Other chronic pain; R10.13 Epigastric pain; R11.0 Nausea
CPT/HCPCS: 36415; 80053; 82947; 82962; 84132; 85027; 86780; C9803; U0003; U0005

== ENCOUNTER 2020-08-07 02:07 | Emergency (ER) | payer OTHER ==
[2020-08-07 02:20] VITALS: TEMP 98.2; BMI 17.6
[2020-08-07] MEDS ORDERED: MAG HYDROX/AL HYDROX/SIMETH -MYLANTA- ORAL SUSPENSION PO ONE (02:54)
[2020-08-07] MEDS ORDERED: FAMOTIDINE 20 MG/50 ML IVPB 20 MG/50 ML MG IVPB ONE ×2 (02:54→04:11)
[2020-08-07] MEDS ORDERED: SODIUM CHLORIDE 0.9% 500 ML INFUS.BAG IV ONE (02:54)
[2020-08-07 03:22] LABS: EOS % 2.8 % (0-4.5); HEMATOCRIT 39.2 % (35.4-49); HEMOGLOBIN 13.3 GM/dL (11.7-16.9); LYMPH % 10.6 % (8-40); MCH 35.5 pg (25.7-33.7); MCHC 34.1 g/dl (32.0-35.9); MEAN CELL VOLUME 104.2 fl (80-96); MEAN PLT VOLUME 9.9 fl (7.5-11.1); MONO % 14.5 % (3.8-10.2); NEUT % 71.1 % (42.8-82.8); PLATELET COUNT 155 K/MM3 (134-434); RBC 3.76 M/mm3 (4.00-5.60); RDW 14.1 % (11.9-15.9); WHITE BLOOD COUNT 7.4 K/mm3 (4.0-10.0)
[2020-08-07 03:50] LABS: CHLORIDE 93 mmol/L (98-107); SODIUM 136 mmol/L (136-145)
[2020-08-07 03:52] LABS: CALCIUM 8.9 mg/dL (8.5-10.1); LIPASE 216 U/L (73-393)
[2020-08-07 03:53] LABS: ALBUMIN 3.1 g/dl (3.4-5.0); ANION GAP 5 MMOL/L (8-16); BLOOD UREA NITROGEN 11.3 mg/dL (7-18); CO2 39 mmol/L (21-32); GLUCOSE,RANDOM 90 mg/dL (74-106)
[2020-08-07 03:55] LABS: CREATININE 0.4 mg/dL (0.55-1.3); SGOT/AST 132 U/L (15-37); SGPT/ALT 42 U/L (13-61)
[2020-08-07 03:57] LABS: BILIRUBIN,TOTAL 0.8 mg/dL (0.2-1); TOT PROT 6.5 g/dl (6.4-8.2)
[2020-08-07 03:58] LABS: ALK PHOS 113 U/L (45-117)
[2020-08-07 05:36] VITALS: BP 118/78; PULSE 77
== END 2020-08-07 05:36 | disposition home or self-care (01) ==
LOC: JER 02:07
PROC: 3E033NZ Introduction of Analgesics, Hypnotics, Sedatives into Peripheral Vein, Percutaneous Approach (ICD-10-PCS; principal; 2020-08-07)
DX: R10.13 Epigastric pain (principal)
CPT/HCPCS: 36415; 71045-TC-FY; 80053; 82550; 83690; 84484; 85025; 93005; 93010; 99285-25